=== PATIENT | male | born 1945 | race Caucasian/White ===

== ENCOUNTER 2018-08-20 13:54 | Emergency (ER) | payer OTHER, BC ==
[2018-08-20 14:08] VITALS: TEMP 98.5; BMI 28.3
[2018-08-20] MEDS ORDERED: ACETAMINOPHEN 325 MG TABLET (FP) PO ONE (14:19)
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
[2018-08-20] MEDS ORDERED: ACETAMINOPHEN 325 MG TABLET (FP) ONE (14:39)
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
[2018-08-20 16:10] VITALS: BP 140/82; PULSE 84
== END 2018-08-20 16:09 | disposition home or self-care (01) ==
LOC: FER 13:54
DX: S09.90XA Unspecified injury of head, initial encounter (principal); V43.52XA Car driver injured in collision with other type car in traffic accident, initial encounter; Y93.89 Activity, other specified; Y92.410 Unspecified street and highway as the place of occurrence of the external cause
CPT/HCPCS: 70450-TC; 72125-TC; 99282-25